=== PATIENT | female | born 1980 | race Hispanic/Latino ===

== ENCOUNTER 2024-05-17 11:07 | Day surgery (SDC) | payer BC, SELFPAY ==
[2024-05-17] VITALS (12 sets, daily range): BP systolic 112–158; BP diastolic 68–91; BMI 38.5; BMI 36.5
[2024-05-17 03:25] LABS: % Basophils 0.3 % (0-2); % Eosinophils 0.3 % (0-6); % Immature Granulocytes 0.3 % (0-0.5); % Lymphocytes 10.7 % (20.5-51.1); % Monocytes 3.8 % (1.7-9.3); % Neutrophils 84.6 % (42.2-75.2); Absolute Basophils 0.1 10^3/uL (0-0.2); Absolute Eosinophils 0.1 10^3/uL (0-0.7); Absolute Immature Granulocytes 0.1 10^3/uL (0-0.05); Absolute Lymphocytes 1.9 10^3/uL (1.2-3.4); Absolute Monocytes 0.7 10^3/uL (0.1-0.6); Absolute Neutrophils 14.6 10^3/uL (1.4-6.5); Hematocrit 40.1 % (37.0-47.0); Hemoglobin 13.3 g/dL (12.0-16.0); Mean Corp Hgb Conc. 33.2 g/dL (33.0-37.0); Mean Corpuscular Hgb 27.1 pg (27.0-31.0); Mean Corpuscular Volume 81.7 fL (81.0-99.0); Mean Platelet Volume 10.2 fL (7.4-10.4); Nucleated Red Blood Cells % 0 %; Platelet Count 293 10^3/uL (130-400); Red Blood Cell Count 4.91 10^6/uL (4.20-5.40); Red Cell Dist. Width 16.6 % (11.5-14.5); White Blood Cell Count 17.2 10^3/uL (4.8-10.8)
[2024-05-17 03:26] LABS: ALT (SGPT) 35 U/L (0-35); AST (SGOT) 27 U/L (14-36); Albumin 4.6 g/dl (3.5-5.0); Alkaline Phosphatase 102 U/L (38-126); Blood Urea Nitrogen 20 mg/dl (7-17); Calcium 9.7 mg/dl (8.4-10.2); Carbon Dioxide 20 mmol/L (22-30); Chloride 105 mmol/L (98-107); Glucose 193 mg/dl (70-99); Lipase 66 U/L (23-300); Potassium 5.4 mmol/L (3.5-5.1); Sodium 137 mmol/L (135-145); Total Bilirubin 0.4 mg/dl (0.2-1.3); Total Protein 7.1 g/dl (6.3-8.2); eGFR > 60.00
[2024-05-17] MEDS: NSS 1000 IV ×3 (04:18→22:24)
[2024-05-17] MEDS: ZOFRAN 4 MG IV ×2 (04:20→16:41)
[2024-05-17] MEDS: TORADOL 30 MG IV (04:22)
--- NOTE | 2024-05-17 05:36 | ED.GENMED ---
History of Present Illness
General
Chief Complaint: Abdominal Pain
Source: patient and spouse
Exam Limitations: none
Time Seen by Provider: 05/17/24 04:10
Nursing documentation reviewed up to this point in time: agreed with
History of Present Illness
History of Present Illness:
This is a 43-year-old woman who has history of hypothyroidism, obesity, hypertension who presents with severe generalized upper abdominal pain associated with nausea and vomiting that began 3 hours prior to arrival. She admits to eating tacos for
dinner tonight. She does admit to similar but milder episodes of upper abdominal pain and nausea that generally occur every 2 to 3 months over the past year but tonight's episode is quite severe, persistent over the past 3 hours. She states
previously she could take Gas-X and pain resolved, she has taken Gas-X tonight without relief. She denies fever nor chills, no back pain, no diarrhea or constipation.
Past History
Past History
ED Past Medical History: HTN (Borderline hypertension), Hypothyroidism and Other (Obesity; history of palpitations, maintained on propranolol)
ED Past Surgical History: Gynecological (Hysterectomy) and Tonsilectomy
Social History
Tobacco: Non-smoker
Alcohol: None
Personal:
Living: with family
Family History
Family History: Other (Noncontributory)
Phy Exam
Physical Exam
Physical Exam:
GENERAL: 43-year-old overweight woman appears her stated age, bright and alert, appears in moderate distress related to pain. is accompanying.
EYE: anicteric
NECK: Supple, nontender, no meningismus, no significant adenopathy.
ENT: oral mucosa is moist. No rhinorrhea.
CARDIAC: Regular rate and rhythm. no murmur.
LUNGS: Clear breath sounds bilaterally, no acute respiratory distress, no wheezes/rales/rhonchi
ABDOMEN: Rotund, soft, nondistended, moderate tenderness epigastric as well as right upper quadrant with local guarding without rebound nor rigidity, no cvat. normoactive BS.
NEUROLOGICAL: Alert and oriented x3, no focal neuro deficits. Gait is holden and steady.
SKIN: Warm and dry, normal color, skin intact. No rash.
MUSCULOSKELETAL: No C/C/E. peripheral pulses are full and equal b/l. No palpable tenderness.
PSYCH: Mildly anxious related to pain, cooperative.
Course
Orders/Labs/Results
Orders:
Orders
05/17/24 02:42
Electrocardiogram (*1) Urgent
Reason for Study: Abdominal Pain
EKG- Treatment ONCE
05/17/24 02:49
Complete Blood Count/With Diff Urgent
Comprehensive Metabolic Panel Urgent
Lipase Urgent
05/17/24 04:13
CT Abd/pelvis W Iv Cont Urgent
Comment:
Reason For Exam: severe upper abd pain, N/V, elevated WBC
0.9% Sodium Chloride 1000 ml [Nss] 1,000 ml IV BOLUS
Ketorolac [Toradol] 30 mg IV NOW STA
Ondansetron Injectable [Zofran] 4 mg IV NOW STA
05/17/24 05:45
US Abdomen Complete/Upper Urgent
Comment:
Reason For Exam: upper abd pain N/V cholecystitis on CT
05/17/24 05:51
HYDROmorphone [Dilaudid] 0.5 mg IV NOW STA
Abnormal Lab Results
05/17/24
02:49
WBC 17.2 H 10^3/uL
(4.8-10.8)
RDW 16.6 H %
(11.5-14.5)
Abs Immat Gran (auto) 0.1 H 10^3/uL
(0-0.05)
Absolute Neuts (auto) 14.6 H 10^3/uL
(1.4-6.5)
Absolute Monos (auto) 0.7 H 10^3/uL
(0.1-0.6)
Neutrophils % 84.6 H %
(42.2-75.2)
Lymphocytes % 10.7 L %
(20.5-51.1)
Potassium 5.4 H mmol/L
(3.5-5.1)
Carbon Dioxide 20 L mmol/L
(22-30)
BUN 20 H mg/dl
(7-17)
Glucose 193 H mg/dl
(70-99)
05/17/24 02:49
05/17/24 02:49
Vital Signs
Initial and Last Documented VS:
Initial Vital Signs
Temp Pulse Resp BP Pulse Ox
97.8 F 79 16 158/91 98
05/17/24 02:40 05/17/24 02:40 05/17/24 02:40 05/17/24 02:40 05/17/24 02:40
Last Documented Vital Signs
Temp Pulse Resp BP Pulse Ox
97.8 F 77 15 131/73 98
05/17/24 02:40 05/17/24 04:15 05/17/24 04:15 05/17/24 04:56 05/17/24 04:56
MDM/Problems Addressed
Differential Diagnosis Includes:
Concern for acute cholecystitis, pancreatitis, gastritis, bowel obstruction, gastroparesis.
Will medicate for pain and nausea, initiate IV fluids and plan for CT abdomen pelvis.
Labs show elevated white blood cell count of 17.2, normal LFTs, normal lipase.
EKG is unremarkable, within normal limits. No evidence of ACS.
Chronic conditions affecting care: Previous abdomnial surgery and Other (Obesity, currently maintained on GLP-1 agonist)
*Radiology
Radiology exam reviewed: radiology read reviewed (CAT scan concerning for acute cholecystitis showing gallstones, Pericholecystic fluid and mildly enlarged common bile duct measuring up to 7 mm.)
*Pulse Oximetry
Patient hypoxic: no
*EKG
Interpreted by ED Provider?: Yes
Interpretation: normal
Comparison EKG: no comparison EKG present
Rate: normal
Rhythm: sinus
[place]: normal axis
Interval: normal interval
QRS Pattern: normal QRS
Ischemia: no ischemia
*Shop Teacher Interpretation
Rate: normal
Interpretation: normal
Rhythm: sinus
*Critical Care Note
Total Time (30-74mins, 75-104mins- exclusive of procedures): Not Applicable
Update Note
Update Note:
05:45
Patient is somewhat more comfortable after IV Toradol, no further nausea after Zofran. She does continue with moderate tenderness epigastric and right upper quadrant.
CAT scan consistent with acute cholecystitis.
Case discussed with general surgery, recommending abdominal ultrasound and if consistent with CAT scan finding will admit to general surgery service.
Will trial an IV dose of Dilaudid for pain. Continue IV fluids. Will plan to initiate IV antibiotics.
ED Attending Note
-
Portions of this chart may have been created with voice recognition software.� Occasional wrong word or��sound alike� substitutions may have occurred due to the inherent limitations of voice recognition software.
Discharge Plan
Departure
Discharge Problem:
Acute calculous cholecystitis
Prescriptions:
No Action
propranolol 120 mg Capsule,Extended Release 24hr
120 mg PO DAILY
Zepbound 7.5 mg/0.5 mL Pen Injector
7.5 mg SC QWEEK
levothyroxine
50 mcg PO DAILY
Referrals:
Kavin Hoang DO [Family Provider] -
Interventions
Interventions:
*Risk Screen - Suicide Last Done: 05/17/24 02:40
*General Assessment Last Done: 05/17/24 02:40
*Neglect/Abuse Screening Last Done: 05/17/24 02:40
*ED- Fall Risk Assessment Last Done: 05/17/24 03:45
*ED COVID-19 Vaccine History Last Done: 05/17/24 03:45
[facility]-Ezmpldwpfw Assessment Last Done: 05/17/24 03:45
Discharge Date and Time
Print Language: ICELANDIC
[2024-05-17] MEDS: DILAUDID 0.5 MG IV ×3 (05:58→15:15)
[2024-05-17] MEDS: CEFOTAN 2000 MG IV ×2 (07:29→16:42)
[2024-05-17] MEDS: DILAUDID 1 MG IV (07:52)
--- NOTE | 2024-05-17 09:34 | HPS.HSE ---
Family Physician
-
Family Physician: Kavin Hoang
Chief Complaint
-
abdominal pain
History of Present Illness
Ms Villasenor is a 43 yo female with a h/o hypothyroid, HTN, myomectomies, and DANNIE who presented through the ED with complaints of epigastric and RUQ pain with nausea and vomiting with acute onset at 10pm last night. She notes that she has had this pain
previously every 3 months or so for the past 2-3 years but milder and usually just after going to bed. Before, her pain resolved spontaneously, but this pain persisted and was more severe causing her to present. She notes that after receiving
analgesics in the ED, her pain returned and she received a third dose just prior to exam. On exam, she is mildly tender the the RUQ. She denies active nausea. She notes chills and sweats at home, but has been afebrile since presentation.
Medical History
Past Medical History
Past Medical History: Reports HTN, Hypothyroidism and Other (obesity)
Past Surgical History: Reports Gynocological (myomectomy, hysterectomy) and Tonsilectomy
Social History
Tobacco: Non-smoker
Alcohol: Occasional
Living: With Family
Family History
Family History: Other (GM with lymphoma)
Allergies / Home Medications
Allergies reflects when Allergies were last updated in [facility].
Home Medications with original date entered in [facility]
Allergy/Medication List:
Patient Allergies
Allergy/AdvReac Type Severity Reaction Status Date / Time
No Known Allergies Allergy Unverified 05/17/24 02:39
�Medication �Instructions �Recorded �Confirmed �Type
levothyroxine 50 mcg PO DAILY 05/17/24 05/17/24 History
propranolol 120 mg capsule,24 120 mg PO DAILY 05/17/24 05/17/24 History
hr,extended release
tirzepatide (weight loss) 7.5 7.5 mg SC QWEEK 05/17/24 05/17/24 History
mg/0.5 mL subcutaneous pen
injector (Zepbound)
Review of Systems
-
History Source: Patient and Family
A 12 point ROS was completed and negative except as noted: Yes
Physical Exam
Vital Signs
Vital Signs
Temp Pulse Resp BP Pulse Ox
98.6 F 94 16 112/73 95
05/17/24 07:48 05/17/24 07:48 05/17/24 07:48 05/17/24 07:48 05/17/24 07:48
Physical Exam
General: Well Developed and Well Nourished
HEENT: NormoCephalic and Moist mucous membranes
Respiratory: Non Labored Respirations
Cardiac: Regular Rhythm
GI: Soft, Non Distended and Tender (mild to RUQ)
Skin: Warm and Dry
Neuro: Awake, Alert and AO x 3
Psych: Calm
Laboratory Results
-
05/17/24 02:49
05/17/24 02:49
Laboratory Results
Total Bilirubin 0.4 mg/dl (0.2-1.3) 05/17/24 02:49
AST 27 U/L (14-36) 05/17/24 02:49
ALT 35 U/L (0-35) 05/17/24 02:49
Alkaline Phosphatase 102 U/L (38-126) 05/17/24 02:49
Lipase 66 U/L (23-300) 05/17/24 02:49
Data Reviewed
-
CT Scan: Image Personally Visualized and interpreted, Report Reviewed by me, Discussed with Physician, Discussed with Patient and Discussed with Family
Ultrasound: Image Personally Visualized and interpreted, Report Reviewed by me, Discussed with Physician, Discussed with Patient and Discussed with Family
Lab Data: Labs Reviewed by me, Discussed with Physician, Discussed with Patient and Discussed with Family
Old Records: Reviewed
Impression/Plan
-
IMPRESSION: 43 yo female presenting with h/o DANNIE, obesity on Zepbound who has had recurrent biliary colic q3-4 months for the past few years now with persistent symptoms since last night accompanied by vomiting. Recurrent pain in the ED with mild
residual RUQ tenderness on exam although exam limited by recent narcotic administration. US and CT with gallstones, non specific for acute cholecystitis although given persistent pain with leukocytosis there is suspicion for early cholecystitis.
PLAN:
NPO for OR tentatively later today for lap lenin
Continue IV ABX
IVF while NPO
Analgesics/Antiemetics prn
SCDs
[2024-05-17 09:55] LABS: INR 0.98; PT 13.3 Sec (11.4-14.6)
[2024-05-17 09:56] LABS: APTT 29.9 Sec (23.4-35.0)
[2024-05-17] MEDS: FLAGYL 500 MG 100 IV ×2 (11:25→19:35)
--- NOTE | 2024-05-17 12:51 | PTCARENOTE ---
Pt admitted to room 2113 from ED at aprox 1145. Pt walked into room without assistance. Pt for OR at aprox 1400 today. Admission and assessment done. Pt with 6/10 pain to upper abd- PRN dilaudid given. Will Do CHG wipes and apply scd's when called.
Instructed to ring for assistance.
--- NOTE | 2024-05-17 15:17 | PTCARENOTE ---
Pt wont have surgery until Sunday. Remains NPO.
--- NOTE | 2024-05-17 15:18 | CM ---
Reviewed the chart notes and spoke with the patient and spouse at the bedside. The patient resides with her spouse in a two story home with seven steps to enter. The patient reports no DME/VN/SNF in the past. The patient confirmed her pharmacy of
choice is [facility]. The patient anticipates going to the OR tomorrow. CM continues to be available to patient/family and is monitoring medical plan for needs at discharge.
Plan: Discharge plans will depend on the patient's progress.
[2024-05-17] MEDS: TORADOL 15 MG IV ×2 (16:41→23:03)
[2024-05-17] MEDS: STERILE WATER FOR INJECTION 10 ML IV (16:42)
[2024-05-18] VITALS (10 sets, daily range): BP systolic 110–163; BP diastolic 62–81
[2024-05-18] MEDS: DILAUDID 0.5 MG IV ×2 (03:21→18:00)
[2024-05-18] MEDS: FLAGYL 500 MG 100 IV (04:16)
[2024-05-18] MEDS: TORADOL 15 MG IV ×2 (05:32→22:17)
[2024-05-18] MEDS: STERILE WATER FOR INJECTION 10 ML IV ×2 (05:32→17:59)
[2024-05-18] MEDS: CEFOTAN 2000 MG IV ×2 (05:32→17:58)
[2024-05-18] MEDS: SYNTHROID 50 MCG PO (05:32)
[2024-05-18 05:46] LABS: Hematocrit 35.2 % (37.0-47.0); Hemoglobin 11.7 g/dL (12.0-16.0); Mean Corp Hgb Conc. 33.2 g/dL (33.0-37.0); Mean Corpuscular Hgb 26.9 pg (27.0-31.0); Mean Corpuscular Volume 80.9 fL (81.0-99.0); Mean Platelet Volume 10.4 fL (7.4-10.4); Platelet Count 215 10^3/uL (130-400); Red Blood Cell Count 4.35 10^6/uL (4.20-5.40); Red Cell Dist. Width 16.8 % (11.5-14.5); White Blood Cell Count 11.3 10^3/uL (4.8-10.8)
[2024-05-18 06:21] LABS: ALT (SGPT) 30 U/L (0-35); AST (SGOT) 23 U/L (14-36); Albumin 3.5 g/dl (3.5-5.0); Alkaline Phosphatase 88 U/L (38-126); Blood Urea Nitrogen 17 mg/dl (7-17); Calcium 8.3 mg/dl (8.4-10.2); Carbon Dioxide 20 mmol/L (22-30); Chloride 106 mmol/L (98-107); Estimated Creatinine Clearance > 125 ml/min; Glucose 151 mg/dl (70-99); Potassium 3.6 mmol/L (3.5-5.1); Sodium 136 mmol/L (135-145); Total Bilirubin 0.6 mg/dl (0.2-1.3); Total Protein 5.8 g/dl (6.3-8.2); eGFR > 60.00
[2024-05-18] MEDS: INDERAL LA 120 MG PO (08:35)
[2024-05-18] MEDS: TYLENOL 650 MG PO (08:35)
[2024-05-18] MEDS: NSS 1000 IV (10:02)
--- NOTE | 2024-05-18 14:57 | W.IMMPOSTOP ---
Surgical Immed Post Op Note
-
Primary Surgeon: Jose Agarwal MD
Assisting Surgeon: Clair Reardon NP, HISTORY TEACHER-S
Pre-op Diagnosis: acute cholecystitis
Post-op Diagnosis: acute cholecystitis
Procedure Performed: laparoscopic cholecystectomy
Anesthesia Type: general
Specimen / Cultures: gallbladder
Estimated Blood Loss: 20mL
Complications: none
Operative Findings: severely inflamed and edematous gallbladder; encountered bile spillage with clear bile consistent with gallbladder hydops; successfully obtained critcal view of safety and clipped the cystic duct and artery; traction injury to
liver, only about 1cm in length, just to the right of the gallbladder fossa, controlled with electrocautery
Ok for regular diet. 7days antibiotic for bile spillage.
Send back to floor.
If pain controlled and tolerating diet, ok for d/c this evening. Otherwise, d/c tomorrow.
--- NOTE | 2024-05-18 15:04 | OR.RPT ---
Operative Report
Operative Report
DATE OF OPERATION: 05/18/2024
SURGEON: Jose Agarwal MD
PREOPERATIVE DIAGNOSIS: Acute on chronic cholecystitis
POSTOPERATIVE DIAGNOSIS: Acute on chronic cholecystitis
OPERATION: Laparoscopic cholecystectomy
ASSISTANTS:
1. Clair Reardon NP, FORESTRY PATROLMAN�S
ANESTHESIA: General
ESTIMATED BLOOD LOSS: 20 mL
FINDINGS:
1. Severely inflamed and edematous gallbladder with large stone in the infundibulum
2. Able to identify the critical view of safety, clipped the cystic duct and cystic artery
3. Small amount of bile spillage and some spillage of large gallstones, all of which were recovered
4. Small traction injury to the liver less than 1 cm in size, easily controlled with electrocautery
SPECIMENS:
1. Gallbladder
DRAINS: None
COMPLICATIONS: No immediate complications.
INDICATIONS: The patient is a 43-year-old female who presented with 1 day of severe right upper quadrant abdominal pain associated with nausea and vomiting. A right upper quadrant ultrasound confirmed gallstones, but without significant wall
thickening or pericholecystic fluid. However, the patient had significant right upper quadrant pain despite a period of IV fluids and bowel rest. Therefore, I recommended a cholecystectomy. The operation was discussed with the patient in detail,
including the risks, benefits and alternatives. Risks described included, but not limited to, bleeding, infection, damage to nearby structures (i.e., common bile duct, liver, bowel), conversion to open, bile spillage, risk that symptoms do not
improve after cholecystectomy, and anesthetic risks. The patient understood and agreed to proceed. The consent was signed and placed in the chart.
PROCEDURE IN DETAIL: The patient was taken to the operating room and placed on the operating table in supine position. Sequential compression devices were placed bilaterally. General anesthesia was then induced and the patient was intubated without
complication. The patient was secured to the bed with one seatbelt and the arms were secured to the armboards. A footboard was placed in case steep reverse Trendelenburg positioning becomes necessary. Anesthesia placed an orogastric tube. Ancef
and Flagyl given pre-incision. The abdomen was prepped and draped in the usual sterile fashion. A time-out was performed verifying the correct patient, procedure, operative site, positioning, and special equipment.
An 11 blade scalpel was used to create a stab incision at Villeda's point. The Veress needle was carefully inserted. After three clicks, insufflation was attached to the Veress needle and an opening pressure of less than 8 mmHg was noted. The
abdomen was insufflated to a pressure of 15 mmHg. The patient tolerated insufflation well. Next, the 11 blade scalpel was used to create a 5 mm incision along the midline about 15 cm from the target anatomy. Using the 5-0 camera and the Optiview
trocar, the first 5 mm port was placed under direct visualization ensuring no injury to adjacent organs. A 5-30 camera was then connected and inserted, and the abdomen was inspected. No injury from initial trocar placement or Veress needle
placement was noted. The gallbladder was noted to be dilated and inflamed. Additional trocars were inserted under direct visualization in the following locations: a 12 mm trocar in the right epigastrium just lateral to the falciform ligament and
two 5 mm trocars along the right costal margin in the anterior axillary line and mid-axillary line. The table was placed in reverse Trendelenburg position with the right side up.
A laparoscopic needle was used to aspirate bile from the gallbladder as it was too distended to be grasped. About 40 mL of bile was aspirated. The dome of the gallbladder was grasped with a locking atraumatic grasper and retracted over the dome of
the liver. The infundibulum was taut and difficult to grasp due to the size of the gallstones, but was retracted using an atraumatic grasper to expose the triangle of Calot. The peritoneum was then scored and incised with electrocautery along the
medial and lateral margins of the gallbladder. Using a combination of hook cautery and blunt dissection, the cystic duct and cystic artery were identified and circumferentially dissected. Due to the chronicity of the inflammation and the
restricted mobility of the infundibulum, this was a difficult dissection. However, the critical view of safety was achieved. The cystic duct and the cystic artery were clipped and divided such that 3 clips remained on the cystic duct stump and 2
clips remained on the cystic artery stump. During the dissection, a small amount bile spillage from the gallbladder was encountered. This was quickly controlled with suction. Several large gallstones also fell from the gallbladder. These were
removed before visualization of them was lost.
The gallbladder was then dissected from its peritoneal attachments to the gallbladder fossa by electrocautery. There was noted to be pericholecystic fluid within this plane, consistent with cholecystitis. However, the space between the gallbladder
and gallbladder fossa was obliterated due to chronic inflammation, making this dissection difficult. Additionally, a traction injury to the liver was noted just to the right of the gallbladder fossa, less than 1 cm in size. There was some oozing
noted from this, which was easily controlled with electrocautery. Prior to complete removal of the gallbladder, the gallbladder fossa was closely evaluated. No additional liver injuries were identified and hemostasis was assured using
electrocautery. The gallbladder was then placed in an endoscopic retrieval bag through the epigastric port and set to the side. The gallbladder fossa was then irrigated with saline and suctioned. There was no evidence of bleeding from the
gallbladder fossa or cystic artery or leakage of bile from the cystic duct stump. Then, the specimen was removed from the epigastric port. Due to the size of the inflamed gallbladder, the fascia had to be stretched with a Belkys clamp and slightly
enlarged with electrocautery. The gallbladder was passed off as specimen. The fascia of the epigastric port was closed with an 0 Vicryl figure-of-8 stitch using laparoscopic visualization and a suture passer. The remaining ports were removed
under direct vision and no bleeding was noted from the trocar sites. The laparoscope was withdrawn and the umbilical trocar removed. The abdomen was allowed to collapse. The port sites were injected with 30mL of 0.25% Marcaine with epinephrine
mixed with 0.3mg of dexamethasone for local anesthesia. The skin was closed with subcuticular sutures of 4-0 Monocryl and Dermabond.
At this point, the procedure was complete. All needle, sponge and instrument counts were correct. The patient tolerated the procedure well. The patient was extubated without complication and was transferred to the recovery room in stable condition.
DICTATED BY: Jose Agarwal MD
--- NOTE | 2024-05-18 15:45 | PTCARENOTE ---
Pt received from the PACU via bed. Transport was w/o incident. Pt is drowsy and easily arousable. Pt denies pain or nausea at this time. Pt's abd with lap sites C/D/I no drainage noted at this time. Call funes within reach.
[2024-05-18] MEDS: FLAGYL 500 MG IV (17:04)
[2024-05-18] MEDS: TORADOL IV (17:05)
[2024-05-18] MEDS: TYLENOL 1000 MG PO ×2 (17:59→23:46)
--- NOTE | 2024-05-18 19:09 | W.PN.UPDATE ---
Update Note
Progress Note Update
Checked on patient, having some incisional pain and worried about uncontrolled pain at home; hasn't tried solids yet; will plan for d/c tmrw
[2024-05-18] MEDS: ROXICODONE 5 MG PO (23:46)
[2024-05-19] MEDS: NSS 1000 IV (00:31)
[2024-05-19 03:05] VITALS: BP 137/78
[2024-05-19] MEDS: TYLENOL 1000 MG PO ×2 (05:05→11:52)
[2024-05-19] MEDS: STERILE WATER FOR INJECTION 10 ML IV (05:05)
[2024-05-19] MEDS: SYNTHROID 50 MCG PO (05:05)
[2024-05-19] MEDS: CEFOTAN 2000 MG IV (05:05)
[2024-05-19 07:04] VITALS: BP 145/78
[2024-05-19] MEDS: ROXICODONE 10 MG PO (09:33)
[2024-05-19] MEDS: INDERAL LA 120 MG PO (09:34)
--- NOTE | 2024-05-19 09:34 | W.PN.CRS1 ---
Today's Communication / Plan
-
as below
Assessment/Plan
-
43-year-old female with PMH of hypothyroid, BMI 38 (on Ozempic), HTN who presents with 1 day of epigastric abdominal pain associated with nausea and vomiting since yesterday evening. The nausea has improved, but the abdominal pain persisted. This
has been going on every 2 to 3 months for the last few years. WBC 17.2, T. bili 0.4, LFTs normal, CT�distended gallbladder with gallbladder wall thickening, concerning for cholecystitis, abdominal ultrasound�gallstones, no gallbladder wall
thickening or pericholecystic fluid, negative Fleming's (personally reviewed and agree)
POD 1 lap lenin with mild bile spillage
AFVSS
No labs this a.m.
� Continue low-fat diet
� Continue pain control with Tylenol, Toradol, oxycodone 5/10 as needed
�Continue antibiotics for total of 1 week postop; IV cefotetan while inpatient; will transition to Augmentin as outpatient
�DVT PPx with Lovenox
�Encourage IS/OOB
Dispo�plan for DC today
Subjective Data
Subjective Data
Date of Service: May 19, 2024
No overnight events.
Pain not well-controlled, but better than yesterday.
Denies nausea/vomiting. Tolerating diet.
+flatus -BMs +voiding
Pt is OOB.
Objective Data
-
Vital Signs
Temp Pulse Resp BP Pulse Ox
98.0 F 84 16 145/78 94
05/19/24 07:04 05/19/24 09:34 05/19/24 07:04 05/19/24 09:34 05/19/24 07:04
Intake & Output
05/18/24 05/19/24 05/20/24
06:59 06:59 06:59
Intake Total 800 / 800 1180 / 1180 1680 / 1680
Balance 800 / 800 1180 / 1180 1680 / 1680
Intake:
Oral fluids 0 / 0 1080 / 1080 480 / 480
IV fluids (Total) 700 / 700 100 / 100 1200 / 1200
Normosol 100 / 100
IV piggybacks 100 / 100
Other:
Number of unmeasured voidings 1
Number of approximated MODERATE 1 2
amounts of urine
Lab Results
05/18/24 04:22
05/18/24 04:22
Physical Exam
-
General: No Acute Distress and AOx3
HEENT: Grossly Normal
Abdomen: Soft, Non Distended, Tender (Appropriately tender near incisions), No Guarding and No Rebound
Skin: Warm and Dry
Wound: No Signs of Infection, Dressing in Place (With Dermabond) and No Skin Erythema
--- NOTE | 2024-05-19 09:53 | W.DS.TRANS ---
DC Summary - Shirt Closer
-
Discharge Instructions:
Discharge Diagnosis/Procedures Acute calculous cholecystitis status post
laparoscopic cholecystectomy
Diet Low Fat,As tolerated,Regular
Additional Diets If you have loose stools after surgery, avoid
oily or greasy foods
Activity No strenuous activity
Additional Activity Do not lift over 10lbs for the next 2-3 weeks
Driving Restrictions wait until comfortable twisting/off narcotics
Bathing Restrictions OK to Shower
Wound Care All the glue to fall off your incisions on its
own over the next 2-3 weeks
Instructions: Low-fat diet
Cholecystectomy - Discharge instructions
Stand-Alone Forms:
Changes to Home Medications: Yes
Discharge Medications:
DC Medications w/original date entered in [facility]
levothyroxine 50 mcg tablet 50 mcg PO DAILY@06 Thyroid 05/17/24
propranolol 120 mg capsule,24 hr,extended release 120 mg PO DAILY 05/17/24
tirzepatide (weight loss) 7.5 mg/0.5 mL subcutaneous pen injector (Zepbound) 7.5 mg SC QWEEK 05/17/24
acetaminophen 325 mg tablet 650 mg (2 x 325 mg) PO Q4HPRN PRN mild pain #1 tab 05/18/24
ibuprofen 200 mg tablet 400 - 600 mg (2 - 3 x 200 mg) PO Q6HPRN PRN moderate pain #1 tab 05/18/24
amoxicillin 875 mg-potassium clavulanate 125 mg tablet 1 tab PO BID 6 days #12 tabs 05/19/24
oxycodone 5 mg tablet 5 - 10 mg (1 - 2 x 5 mg) PO Q6H PRN Pain 0 days #20 tabs 05/19/24
Home Medication Changes
amoxicillin 875 mg-potassium clavulanate 125 mg tablet 1 tab PO BID 6 days #12 tabs 05/19/24
oxycodone 5 mg tablet 5 - 10 mg (1 - 2 x 5 mg) PO Q6H PRN Pain 0 days #20 tabs 05/19/24
Pending Results: Yes
Additional Pending Results:
pathology
--- NOTE | 2024-05-19 10:59 | CM ---
Patient seen at bedside in [address] [place] [address]. Patient stated that she is for discharge home today. Patient now PSR status per [facility] nurse. Patient for discharge home today with no needs anticipated at this time. CM will continue to follow for discharge planning
needs.
Plan; home with no needs anticipated
[2024-05-19 12:45] VITALS: BP 134/78
== END 2024-05-19 13:51 | disposition home or self-care (01) ==
LOC: PACU 11:07
PROVIDERS: Registered Nurse; ATTENDING PHYSICIAN Surgery; EMERGENCY PHYSICIAN Emergency Medicine; FAMILY PHYSICIAN Family Medicine
DX: K80.00 Calculus of gallbladder with acute cholecystitis without obstruction (principal); K80.12 Calculus of gallbladder with acute and chronic cholecystitis without obstruction
CPT/HCPCS: 47562; 88304; 74177; 76700; 80053; 83690; 85025; 85027; 85610; 85730; 86850; 86900; 86901; 93005; 96361; 96365; 96375; 96376; 99285; Q9967

== ENCOUNTER 2024-09-09 06:28 | Day surgery (SDC) | payer BC, SELFPAY | END 2024-09-09 10:57 | disposition home or self-care (01) | LOC: GI 06:28 | PROVIDERS: ATTENDING PHYSICIAN Surgery | DX: Z12.11 Encounter for screening for malignant neoplasm of colon (principal); K57.30 Diverticulosis of large intestine without perforation or abscess without bleeding; K64.8 Other hemorrhoids; K63.5 Polyp of colon | CPT/HCPCS: 45380; 88305 ==

== ENCOUNTER → 2024-10-07 12:51 | Outpatient (REF) | payer BC, SELFPAY | LOC: RCS 12:51 | PROVIDERS: ATTENDING PHYSICIAN Internal Medicine; FAMILY PHYSICIAN Family Medicine | DX: R07.89 Other chest pain (principal); I10 Essential (primary) hypertension | CPT/HCPCS: 93306 ==

== ENCOUNTER → 2024-10-08 10:45 | Outpatient (REF) | payer BC, SELFPAY | LOC: RCS 10:45 | PROVIDERS: ATTENDING PHYSICIAN Internal Medicine; FAMILY PHYSICIAN Family Medicine | DX: R07.89 Other chest pain (principal); I10 Essential (primary) hypertension | CPT/HCPCS: 93017 ==